=== PATIENT | male | born 2005 | race Caucasian/White ===

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

== ENCOUNTER 2024-08-04 17:52 | Emergency (ER) | payer OTHER, SELFPAY ==
[2024-08-04 18:06] VITALS: BP 155/77; PULSE 86; RESP 16; TEMP 36.4; O2SAT 100
--- NOTE | 2024-08-04 18:16 | ED.EAR ---
HPI - Ear Problem General Chief complaint: Ear Stated complaint: RT Ear wax clogged Time Seen by Provider: 08/04/24 18:16 Source: patient Mode of arrival: ambulatory Limitations: no limitations History of Present Illness HPI Narrative: 18-year-old male presented for complaint of right ear fullness for 2 days. Denies significant ear pain. Also reports 1 week of nasal congestion and drainage. Denies tinnitus, dizziness, ear drainage, nausea vomiting diarrhea, fevers or chills. MD Complaint: ear pain Related Data Allergies Allergy/AdvReac Type Severity Reaction Status Date / Time No Known Allergies Allergy Verified 08/04/24 18:10 Review of Systems Review of Systems: per HPI All systems reviewed & are unremarkable except as noted in HPI and below PMFSH Past Medical History Medical History Exercise-induced asthma Comments At time of signature, agree with nursing past medical, surgical, social and family history. There is no relevant family history pertinent to the presenting complaint Exam Narrative: GENERAL: Well-appearing EYES: PERRLA, conjunctivae clear ENT: Nares clear. Mucous membranes moist. Left TM pearly bains with dull light reflex; right TM erythematous, bulging and intact; canal not erythematous, no drainage no tragal tenderness. Oropharynx not erythematous without lesions. no drooling, no hoarseness, no trismus, uvula midline. NECK: Supple. No lymphadenopathy CHEST: Clear to auscultation, breath sounds equal. HEART: Regular rate and rhythm. No murmur heard. SKIN: Warm, dry, no rash. Course Course Emergency Course: Patient is aware of diagnosis, understands and agrees to treatment plan. Anticipatory guidance given. Patient agrees to follow-up as directed and is aware of reasons to seek care at the emergency department. Portions of this record may have been created with voice recognition software Level of Care: Express Care Visit Vital Signs Vital signs: Vital Signs Temperature 97.5 F L 08/04/24 18:06 Pulse Rate 86 08/04/24 18:06 Respiratory Rate 16 08/04/24 18:06 Blood Pressure 155/77 H 08/04/24 18:06 Pulse Oximetry 100 08/04/24 18:06 Oxygen Delivery Room Air 08/04/24 18:06 Temperature 97.5 F L 08/04/24 18:06 Pulse Rate 86 08/04/24 18:06 Respiratory Rate 16 08/04/24 18:06 Blood Pressure 155/77 H 08/04/24 18:06 Pulse Oximetry 100 08/04/24 18:06 Oxygen Delivery Room Air 08/04/24 18:06 Reviewed Medical Decision Making MDM Narrative Medical decision making narrative: Discussed physical exam findings consistent with right AOM. Advised supportive measures and signs/symptoms to go to the ER. Patient is appropriate for outpatient treatment and follow-up. Differential Diagnosis Differential Diagnosis: Coronavirus, strep pharyngitis, allergic rhinitis, upper respiratory tract infection, sinusitis, rhinosinusitis, nasopharyngitis, viral pharyngitis, otitis media, otitis externa, eustachian tube dysfunction, foreign body, cerumen impaction. Vital Signs Vital Signs: Vital Signs Temperature 97.5 F L 08/04/24 18:06 Pulse Rate 86 08/04/24 18:06 Respiratory Rate 16 08/04/24 18:06 Blood Pressure 155/77 H 08/04/24 18:06 Pulse Oximetry 100 08/04/24 18:06 Oxygen Delivery Room Air 08/04/24 18:06 Temperature 97.5 F L 08/04/24 18:06 Pulse Rate 86 08/04/24 18:06 Respiratory Rate 16 08/04/24 18:06 Blood Pressure 155/77 H 08/04/24 18:06 Pulse Oximetry 100 08/04/24 18:06 Oxygen Delivery Room Air 08/04/24 18:06 Discharge Plan Discharge Clinical Impression: Otitis media Patient Disposition: Home, Self-Care Condition: Stable Instructions: Antibiotic Form, Ear Infection (ED) Additional Instructions: Take antibiotics as directed. Recommendations: antihistamine such as Benadryl, Zyrtec or Maylin for sinus congestion Flonase nasal spray, 1 spray in each nostril once daily until symptoms improve Symptomatic treatment includes: rest, fluids, and increase humidity of the air at home. Tylenol 1000mg every 8 hours as needed to reduce fever, pain Please schedule a follow-up visit with your personal physician If your symptoms persist, change or worsen significantly, go to the emergency department for further evaluation. Patient Language: Mexican Prescriptions: New amoxicillin-pot clavulanate 875-125 mg tablet 1 tablet PO Q12H 7 Days Qty: 14 0RF No Action prednisone 50 mg tablet 50 mg PO DAILY 5 Days Qty: 5 0RF albuterol sulfate [ProAir HFA] 90 mcg/actuation HFA aerosol inhaler 2 puff INHALATION Q4-6H PRN (Reason: shortness of breath or wheezing) Qty: 18 0RF benzonatate 200 mg capsule 200 mg PO TID PRN (Reason: cough) Qty: 20 0RF Follow-up/Referrals: Sarah,TIFFANY Yap [Primary Care Provider] - Time of Disposition: 18:22
== END 2024-08-04 18:22 | disposition home or self-care (01) ==
PROVIDERS: Emergency Provider Nurse Practitioner Family; PCP Nurse Practitioner
DX: H66.91 Otitis media, unspecified, right ear (principal)
CPT/HCPCS: 99213; G0463